=== PATIENT | female | born 1970 | race Caucasian/White ===

== ENCOUNTER 2018-06-23 02:40 | Emergency (ER) | payer OTHER ==
[~2018-06-23] VITALS: Ht 147.3 cm; Wt 52.3 kg
[2018-06-23 02:46] VITALS: BP 142/86
[2018-06-23 03:20] LABS: EOS # 0.1 (0.04-0.40); EOS % 1.8 % (1.0-5.0); HEMATOCRIT 36.1 % (37.0-47.0); HEMOGLOBIN 10.8 g/dL (12.5-16.0); LYMPH# 1.5 (1.50-4.00); MEAN CELL VOLUME 79 fl (78-100); MEAN CORPUSCULAR HGB CONC 30 g/dL (33-37); MEAN PLATELET VOLUME 10.9 fl (7.4-10.4); MONO # 0.7 (0.20-0.80); NEU # 5.3 (1.40-6.50); PLATELET COUNT 293 K/mm3 (130-400); RED BLOOD COUNT 4.59 M/mm3 (4.10-5.30); RED CELL DISTRIBUTION WIDTH 17.7 % (11.5-14.5); WHITE BLOOD COUNT 7.7 K/mm3 (4.8-10.8)
[2018-06-23 03:33] LABS: ALBUMIN 3.7 g/dL (3.5-5.0); BUN/CREATININE RATIO 22.4 (6.0-26.0); CALCIUM 8.9 mg/dL (8.4-10.2); MEAN CORPUSCULAR HEMOGLOBIN 24 pg (27-31); POTASSIUM 3.4 mmol/L (3.6-5.0); TOTAL BILIRUBIN 0.3 mg/dL (0.2-1.3); TOTAL PROTEIN 6.6 g/dL (6.3-8.2)
[2018-06-23 03:35] LABS: URINE APPEARANCE CLOUDY; URINE COLOR YELLOW; URINE GLUCOSE NEGATIVE (NEGATIVE); URINE KETONE NEGATIVE (NEGATIVE); URINE PROTEIN(semi-quant) NEGATIVE (NEGATIVE)
[2018-06-23 03:36] LABS: URINE BILIRUBIN NEGATIVE (NEGATIVE); URINE BLOOD TRACE (NEGATIVE); URINE LEUKOCYTE ESTERASE NEGATIVE (NEGATIVE); URINE NITRATE NEGATIVE (NEGATIVE); URINE UROBILINOGEN NORMAL (NORMAL); URINE WBC 0-1 /hpf (0-3)
[2018-06-23] MEDS ORDERED: FLOMAX0.4 MG PO (04:14)
[2018-06-23] MEDS ORDERED: NORCO 325 MG-51 TA1 PO (04:14)
== END 2018-06-23 04:22 | disposition home or self-care (01) ==
LOC: ED 02:40
PROVIDERS: Physician Assistant
DX: N13.2 Hydronephrosis with renal and ureteral calculous obstruction (principal); Z87.442 Personal history of urinary calculi; K59.00 Constipation, unspecified; I10 Essential (primary) hypertension; Z88.2 Allergy status to sulfonamides
CPT/HCPCS: J1885; Q9967

== ENCOUNTER → 2018-08-29 | Outpatient (CLI) | payer OTHER ==
[~2018-08-29] MED LIST: FLOMAX0.4 MG PO; NORCO 325 MG-51 TA1 PO
[2018-08-29 11:12] LABS: EOS # 0.1 (0.04-0.40); EOS % 1.5 % (1.0-5.0); HEMATOCRIT 40.6 % (37.0-47.0); HEMOGLOBIN 12.7 g/dL (12.5-16.0); MEAN CELL VOLUME 82 fl (78-100); MEAN CORPUSCULAR HEMOGLOBIN 26 pg (27-31); MEAN CORPUSCULAR HGB CONC 31 g/dL (33-37); MEAN PLATELET VOLUME 11.3 fl (7.4-10.4); MONO # 0.4 (0.20-0.80); NEU # 4.4 (1.40-6.50); PLATELET COUNT 248 K/mm3 (130-400); RED BLOOD COUNT 4.93 M/mm3 (4.10-5.30); RED CELL DISTRIBUTION WIDTH 16.3 % (11.5-14.5); WHITE BLOOD COUNT 5.9 K/mm3 (4.8-10.8)
[2018-08-29 11:40] LABS: ALBUMIN 4.2 g/dL (3.5-5.0); CALCIUM 9.5 mg/dL (8.4-10.2); POTASSIUM 3.2 mmol/L (3.6-5.0); TOTAL BILIRUBIN 0.5 mg/dL (0.2-1.3); TOTAL PROTEIN 7.5 g/dL (6.3-8.2)
[2018-08-30 23:53] LABS: ANA SCREEN with REFLEX Positive (Negative)
== END ==
LOC: LAB 10:47
PROVIDERS: Family Medicine
DX: Z01.419 Encounter for gynecological examination (general) (routine) without abnormal findings (principal); R53.83 Other fatigue

== ENCOUNTER → 2018-10-04 | Outpatient (CLI) | payer OTHER | LOC: RAD 10-03 10:43 | DX: N20.0 Calculus of kidney (principal); M47.814 Spondylosis without myelopathy or radiculopathy, thoracic region; R93.7 Abnormal findings on diagnostic imaging of other parts of musculoskeletal system; N83.9 Noninflammatory disorder of ovary, fallopian tube and broad ligament, unspecified; Q78.2 Osteopetrosis | CPT/HCPCS: Q9967 ==

== ENCOUNTER → 2019-07-01 | Outpatient (CLI) | payer OTHER | LOC: RAD 08:25 | DX: M25.471 Effusion, right ankle (principal); M25.474 Effusion, right foot; W21.01XA Struck by football, initial encounter; Y93.61 Activity, american tackle football ==

== ENCOUNTER → 2020-01-22 | Outpatient (CLI) | payer OTHER | LOC: LAB 16:58 | DX: R05 Cough (principal) ==

== ENCOUNTER → 2020-04-29 | Outpatient (CLI) | payer OTHER | LOC: LAB 14:02 | DX: Z20.828 Contact with and (suspected) exposure to other viral communicable diseases (principal) ==

== ENCOUNTER → 2020-06-11 | Outpatient (CLI) | payer OTHER ==
[2020-06-11 14:13] LABS: BASO # 0.1 (0.02-0.10); EOS # 0.1 (0.04-0.40); EOS % 1.9 % (1.0-5.0); HEMATOCRIT 41.8 % (37.0-47.0); HEMOGLOBIN 13.1 g/dL (12.5-16.0); LYMPH# 1.2 (1.50-4.00); MEAN CELL VOLUME 90 fl (78-100); MEAN CORPUSCULAR HEMOGLOBIN 28 pg (27-31); MEAN CORPUSCULAR HGB CONC 31 g/dL (33-37); MONO # 0.5 (0.20-0.80); PLATELET COUNT 223 K/mm3 (130-400); RED BLOOD COUNT 4.65 M/mm3 (4.10-5.30); RED CELL DISTRIBUTION WIDTH 14.1 % (11.5-14.5); WHITE BLOOD COUNT 5.8 K/mm3 (4.8-10.8)
[2020-06-11 14:28] LABS: ALBUMIN 4.3 g/dL (3.5-5.0); POTASSIUM 3.5 mmol/L (3.5-5.1)
[2020-06-11 14:29] LABS: CALCIUM 9.6 mg/dL (8.3-10.5)
[2020-06-11 14:31] LABS: TOTAL PROTEIN 7.7 g/dL (6.4-8.3)
[2020-06-11 14:32] LABS: TOTAL BILIRUBIN 0.3 mg/dL (0.2-1.2)
== END ==
LOC: LAB 13:54
PROVIDERS: Family Medicine
DX: Z00.00 Encounter for general adult medical examination without abnormal findings (principal); E78.5 Hyperlipidemia, unspecified; E55.9 Vitamin D deficiency, unspecified

== ENCOUNTER → 2020-07-09 | Outpatient (CLI) | payer OTHER | LOC: LAB 15:11 | DX: M79.10 Myalgia, unspecified site (principal); R53.83 Other fatigue; R09.81 Nasal congestion; Z20.828 Contact with and (suspected) exposure to other viral communicable diseases ==

== ENCOUNTER → 2021-02-05 | Outpatient (CLI) | payer OTHER ==
[2021-02-05 08:38] LABS: EOS # 0.1 (0.04-0.40); EOS % 2.1 % (1.0-5.0); HEMATOCRIT 41.7 % (37.0-47.0); HEMOGLOBIN 12.9 g/dL (12.5-16.0); LYMPH# 0.9 (1.50-4.00); MEAN CELL VOLUME 87 fl (78-100); MEAN CORPUSCULAR HEMOGLOBIN 27 pg (27-31); MEAN CORPUSCULAR HGB CONC 31 g/dL (33-37); MEAN PLATELET VOLUME 11.1 fl (7.4-10.4); MONO # 0.3 (0.20-0.80); NEU # 2.5 (1.40-6.50); PLATELET COUNT 213 K/mm3 (130-400); RED BLOOD COUNT 4.77 M/mm3 (4.10-5.30); RED CELL DISTRIBUTION WIDTH 14.9 % (11.5-14.5); WHITE BLOOD COUNT 3.8 K/mm3 (4.8-10.8)
[2021-02-05 08:40] LABS: ALBUMIN 4.1 g/dL (3.5-5.0); POTASSIUM 3.4 mmol/L (3.5-5.1)
[2021-02-05 08:43] LABS: TOTAL PROTEIN 7.1 g/dL (6.4-8.3)
[2021-02-05 08:44] LABS: TOTAL BILIRUBIN 0.3 mg/dL (0.2-1.2)
== END ==
LOC: LAB 08:07
PROVIDERS: Physician Assistant
DX: Z13.29 Encounter for screening for other suspected endocrine disorder (principal); E78.5 Hyperlipidemia, unspecified; D64.9 Anemia, unspecified; E16.2 Hypoglycemia, unspecified

== ENCOUNTER → 2021-05-29 | Outpatient (REF) | LOC: LAB 06:34 | DX: U07.1 COVID-19 (principal) ==

== ENCOUNTER → 2022-08-13 | Outpatient (CLI) | payer OTHER ==
[2022-08-13 12:07] LABS: BASO # 0.05 K/mm3 (0.02-0.10); EOS # 0.09 K/mm3 (0.04-0.40); EOS % 1.7 % (1.0-5.0); HEMATOCRIT 35.3 % (37.0-47.0); HEMOGLOBIN 10.8 g/dL (12.5-16.0); LYMPH# 0.89 K/mm3 (1.50-4.00); MEAN CELL VOLUME 84 fl (78-100); MEAN CORPUSCULAR HEMOGLOBIN 26 pg (27-31); MEAN CORPUSCULAR HGB CONC 31 g/dL (33-37); MEAN PLATELET VOLUME 10.2 fl (7.4-10.4); MONO # 0.37 K/mm3 (0.20-0.80); NEU # 3.83 K/mm3 (1.40-6.50); PLATELET COUNT 213 K/mm3 (130-400); RED BLOOD COUNT 4.21 M/mm3 (4.10-5.30); RED CELL DISTRIBUTION WIDTH 16.2 % (11.5-14.5); WHITE BLOOD COUNT 5.2 K/mm3 (4.8-10.8)
[2022-08-13 12:20] LABS: ALBUMIN 3.8 g/dL (3.5-5.0); POTASSIUM 3.3 mmol/L (3.5-5.1)
[2022-08-13 12:21] LABS: CALCIUM 9.1 mg/dL (8.3-10.5)
[2022-08-13 12:22] LABS: TOTAL PROTEIN 6.4 g/dL (6.4-8.3)
[2022-08-13 12:24] LABS: TOTAL BILIRUBIN 0.3 mg/dL (0.2-1.2)
== END ==
LOC: LAB 11:52
PROVIDERS: Family Medicine
DX: Z12.31 Encounter for screening mammogram for malignant neoplasm of breast (principal); M25.551 Pain in right hip; M81.0 Age-related osteoporosis without current pathological fracture

== ENCOUNTER → 2023-08-17 | Outpatient (CLI) | payer OTHER ==
[2023-08-17 09:41] LABS: BASO # 0.04 K/mm3 (0.02-0.10); EOS # 0.08 K/mm3 (0.04-0.40); EOS % 2.2 % (1.0-5.0); HEMATOCRIT 40.6 % (37.0-47.0); LYMPH# 0.89 K/mm3 (1.50-4.00); MEAN CELL VOLUME 94 fl (78-100); MEAN CORPUSCULAR HEMOGLOBIN 30 pg (27-31); MEAN CORPUSCULAR HGB CONC 32 g/dL (33-37); MEAN PLATELET VOLUME 10.2 fl (7.4-10.4); MONO # 0.29 K/mm3 (0.20-0.80); NEU # 2.32 K/mm3 (1.40-6.50); PLATELET COUNT 226 K/mm3 (130-400); RED BLOOD COUNT 4.32 M/mm3 (4.10-5.30); RED CELL DISTRIBUTION WIDTH 13.9 % (11.5-14.5); WHITE BLOOD COUNT 3.6 K/mm3 (4.8-10.8)
[2023-08-17 09:47] LABS: POTASSIUM 3.5 mmol/L (3.5-5.1)
[2023-08-17 09:49] LABS: CALCIUM 9.8 mg/dL (8.3-10.5)
[2023-08-17 09:50] LABS: TOTAL PROTEIN 6.7 g/dL (6.4-8.3)
[2023-08-17 09:52] LABS: TOTAL BILIRUBIN 0.4 mg/dL (0.2-1.2)
== END ==
LOC: LAB 09:30
PROVIDERS: Family Medicine
DX: Z00.00 Encounter for general adult medical examination without abnormal findings (principal); E78.5 Hyperlipidemia, unspecified; N20.0 Calculus of kidney; M25.521 Pain in right elbow; E55.9 Vitamin D deficiency, unspecified

== ENCOUNTER 2023-09-16 07:52 | Outpatient (RCR) | payer OTHER | END 2023-10-14 | disposition home or self-care (01) | LOC: OT | DX: M25.521 Pain in right elbow (principal) ==

== ENCOUNTER → 2024-10-04 | Outpatient (CLI) | payer OTHER ==
[2024-10-04 10:57] LABS: BASO # 0.03 K/mm3 (0.02-0.10); EOS # 0.09 K/mm3 (0.04-0.40); EOS % 2.1 % (1.0-5.0); HEMATOCRIT 44.1 % (37.0-47.0); HEMOGLOBIN 14.5 g/dL (12.5-16.0); LYMPH# 0.65 K/mm3 (1.50-4.00); MEAN CELL VOLUME 94 fl (78-100); MEAN CORPUSCULAR HEMOGLOBIN 31 pg (27-31); MEAN CORPUSCULAR HGB CONC 33 g/dL (33-37); MEAN PLATELET VOLUME 10.5 fl (7.4-10.4); MONO # 0.35 K/mm3 (0.20-0.80); NEU # 3.08 K/mm3 (1.40-6.50); PLATELET COUNT 196 K/mm3 (130-400); RED BLOOD COUNT 4.69 M/mm3 (4.10-5.30); RED CELL DISTRIBUTION WIDTH 11.7 % (11.5-14.5); WHITE BLOOD COUNT 4.2 K/mm3 (4.8-10.8)
[2024-10-04 11:30] LABS: ALBUMIN 4.3 g/dL (3.5-5.0)
[2024-10-04 11:31] LABS: CALCIUM 10.6 mg/dL (8.3-10.5)
[2024-10-04 11:34] LABS: TOTAL BILIRUBIN 0.3 mg/dL (0.2-1.2)
== END ==
LOC: LAB 10:44
PROVIDERS: Family Medicine
DX: E78.5 Hyperlipidemia, unspecified (principal); I10 Essential (primary) hypertension

== ENCOUNTER → 2024-12-05 | Outpatient (CLI) | payer OTHER | LOC: MAMMO 14:00 → RAD 14:01 | DX: Z12.31 Encounter for screening mammogram for malignant neoplasm of breast (principal); M85.80 Other specified disorders of bone density and structure, unspecified site ==

== ENCOUNTER → 2024-12-11 | Day surgery (SDC) | payer OTHER | LOC: MSO 07:04 | DX: Z12.11 Encounter for screening for malignant neoplasm of colon (principal) | CPT/HCPCS: 00812; J2704; J7120 ==